=== PATIENT | female | born 1985 | race Caucasian/White ===

== ENCOUNTER 2023-04-28 08:46 | Outpatient (CLI) | payer BC, SELFPAY ==
--- NOTE | 2023-04-28 09:00 | ECG_ITS ---
Measurements Intervals Adams Rate: 71 P: 4 RI: 147 QRS: 13 QRSD: 96 T: 3 QT: 390 QTc: 425 Interpretive Statements SINUS RHYTHM NONSPECIFIC T-WAVE ABNORMALITY ABNORMAL ECG Electronically Signed On 04-28-2023 9:19:47 CDT by Alejandro Olivera M.D.
[2023-04-28 09:32] LABS: Basophils Absolute Auto 0.1 K/mm3 (0.0-0.1); Basophils Percent Auto 0.6 % (0.2-1.2); Eosinophils Absolute Auto 0.1 K/mm3 (0-0.3); Eosinophils Percent Auto 1.2 % (0-4.4); Hematocrit 39.9 % (37.0-47.0); Hemoglobin 12.3 g/dL (12.0-15.0); Immature Granulocyte Absolute 0.05 K/mm3 (0.00-0.031); Immature Granulocyte Percent A 0.4 % (0-0.5); Lymphocytes Absolute Auto 2.97 K/mm3 (0.9-3.2); Lymphocytes Percent Auto 26.5 % (18.3-44.2); Mean Corpuscular HGB Conc 30.8 g/dl (32-36); Mean Corpuscular Hemoglobin 26.1 pg (26-34); Mean Corpuscular Volume 84.7 fl (80-100); Mean Platelet Volume 10.7 fl (7.4-10.4); Monocytes Absolute Auto 0.8 K/mm3 (0.1-0.6); Monocytes Percent Auto 6.9 % (2.6-8.5); Neutrophils Absolute Auto 7.2 K/mm3 (1.3-6.7); Neutrophils Percent Auto 64.4 % (45.5-73.1); Platelet Count Result 358 k/mm3 (150-375); Red Blood Count 4.71 M/mm3 (4.2-5.4); Red Cell Distribution Width 16.7 % (11.5-14.5); White Blood Count 11.2 K/mm3 (4.5-10.0)
[2023-04-28 09:41] LABS: Anion Gap 12 mmol/L (8-16); Blood Urea Nitrogen 11 mg/dL (7-17); Calcium 9.4 mg/dL (8.4-10.2); Carbon Dioxide 24 mmol/L (22-30); Chloride 102 mmol/L (98-107); Estimated Glomerular Filt Rate > 60; Glucose 104 mg/dL (65-110); Sodium 138 mmol/L (137-145)
== END 2023-04-28 08:47 | disposition home or self-care (01) ==
LOC: ANHSURGERY 08:52
PROVIDERS: Anesthesiology; PCP Family Medicine; Visit Provider Obstetrics & Gynecology
DX: Z01.818 Encounter for other preprocedural examination (principal); Z79.899 Other long term (current) drug therapy; I10 Essential (primary) hypertension; D21.9 Benign neoplasm of connective and other soft tissue, unspecified; R94.31 Abnormal electrocardiogram [ECG] [EKG]
CPT/HCPCS: 36415; 80048; 85025; 86850; 86900; 86901; 93005

== ENCOUNTER 2023-04-30 01:50 | Day surgery (SDC) | payer BC, SELFPAY ==
[2023-04-26 10:02] VITALS: BMI 46.2
--- NOTE | 2023-04-26 10:06 | PC.NURSE ---
Report to the Outpatient Waiting Room, entrance under the green pavilion located off [facility], at time 9:30 on date 04/30/23. Planned Procedure Time: 11:30. Time changes happen often and if your time is changed the preop area will call you the afternoon before. - You and your visitor will be asked to self-screen and do not enter if you have any COVID symptoms. - A mask is optional within the hospital at this time. Patients may have clear liquids (water, carbonated beverages, clear teas, apple juice) until 3 hours prior to surgery (8:30) with a maximum of 20 ounces. - No food from midnight until time of surgery Take the following medications with a SIP of water the morning of surgery: NONE DO NOT STOP ANY OF YOUR OTHER PRESCRIPTION MEDICATIONS PRIOR TO SURGERY ?EXCEPT THE FOLLOWING Medications to discontinue per physician: N/A Date to take last dose: N/A Please no make-up, nail burkinan, hairspray, perfume, deodorant, or body powder the day of surgery. No jewelry (including any body piercings) or valuables the day of surgery, leave them at home. Please take a shower or bath the night before, or the morning of, surgery with an antibacterial soap. Wear comfortable, loose fitting clothing. - Jewelry must be removed prior to entering the operating room. Rings and piercings that are not removed may be cut off. - The hospital will not accept responsibility for valuables. - Please leave all valuables, including medications, at home the day of surgery. If you are going home after surgery, a licensed straight truck driver must drive you home. - NO public transportation without another adult if you receive anesthesia. - We recommend that an adult stay with you for 24 hours following discharge. - We also recommend that you do not drive, make important decision, drink alcoholic beverages, or take any drugs that were not prescribed by your health care provider for at least 24 hours after your discharge time. Follow any additional instructions given to you from your surgeon. If you or anyone in your household have experienced Covid symptoms in the past week, please notify your surgeon or the nurse liaison at the phone number below for possible testing. Telephone instructions given to PT - RAJ GABRIEL and asked if any additional questions and then verbalized understanding. Patient advised to call surgeon office or pre surgery nurse liaison [phone] if any additional questions.
--- NOTE | 2023-04-27 12:59 | P.HP_ITS ---
H&P: HPI History of Present Illness Date/Time: 04/27/23 12:59 Chief Complaint: Vaginal bleeding/enlarged uterus/pelvic pain Narrative: This is a 37-year-old female 3 para 3 who is admitted for robotic total vaginal hysterectomy salpingectomy secondary to used history of stage IV endometriosis. She has had pain discomfort and dyspareunia. Her uterus is enlarged she has severe pain. She opts for robotic hysterectomy and bilateral salpingectomy. Risks and benefits reviewed including but not exclusive of , aspiration pneumonia bleeding, transfusion, perforation and injury to bowel, bladder, ureters, or other internal organs with need for laparotomy. She received the ACOG handout entitled hysterectomy as well as the Lv handout she had all questions answered to her satisfaction. She asked to proceed [facility] Social History Social History Smoking status: Never smoker Alcohol intake: never Substance use: never Substance use type: does not use Living arrangements: with family Spiritual care concerns: No Meds Home Medications and Allergies Home Medications Medication Instructions Recorded Confirmed Type estradiol 2 mg tablet 2 mg PO DAILY 04/26/23 04/26/23 History lisdexamfetamine 30 mg capsule 30 mg PO DAILY 04/26/23 04/26/23 History (Vyvanse) lisinopril 10 1 tablet PO DAILY 04/26/23 04/26/23 History mg-hydrochlorothiazide 12.5 mg tablet Allergies Allergy/AdvReac Type Severity Reaction Status Date / Time No Known Allergies Allergy Verified 04/26/23 10:00 Exam Const: General: cooperative, healthy appearing, comfortable and obese Orientation/consciousness: oriented to person, oriented to place and oriented to time HENMT: Head: normal to inspection Resp: Effort & Inspection: normal respiratory effort Cardio: Rate: regular rate Rhythm: regular rhythm Heart sounds: S1 normal heart sound present and S2 normal heart sound present GI: Inspection: normal to inspection and obesity Percussion: Yes normal to percussion Auscultation: normal bowel sounds : External Female Exam: normal external appearance Speculum Exam - Vagina: normal appearance of the vagina Speculum Exam - Cervix: normal appearance of the cervix Bimanual exam- vagina & uterus: enlarged Bimanual Exam- Adnexa, other: normal adnexae Assessment and Plan Assessment and plan (1) Excessive vaginal bleeding: Code(s): N93.9 - Abnormal uterine and vaginal bleeding, unspecified Status: Acute (2) Pelvic pain: Code(s): R10.2 - Pelvic and perineal pain Status: Acute (3) Enlarged uterus: Code(s): N85.2 - Hypertrophy of uterus Status: Acute Plan Robotic total vaginal hysterectomy with bilateral salpingectomies
--- NOTE | 2023-04-29 14:56 | P.PNAN_ITS ---
Anes - Initial Pre Proc Eval Procedure: Operation Date: 04/30/23 11:30 Proposed Procedures p Robotic Assisted Total Vaginal Hysterectomy with Bilateral Salpingectomy - Stanford Kaur MD Date/Time: 04/29/23 14:56 Surgeon: Stanford Kaur MD Pre Op Diagnosis: excessive bleeding, pelvic pain, uterine fibroids Patient Data Age: 37 Gender: F Height: 1.7 m Weight: 133.8 kg Allergies Allergy/AdvReac Type Severity Reaction Status Date / Time No Known Allergies Allergy Verified 04/26/23 10:00 Home Medications Medication Instructions Recorded Confirmed Type estradiol 2 mg tablet 2 mg PO DAILY 04/26/23 04/26/23 History lisdexamfetamine 30 mg capsule 30 mg PO DAILY 04/26/23 04/26/23 History (Vyvanse) lisinopril 10 1 tablet PO DAILY 04/26/23 04/26/23 History mg-hydrochlorothiazide 12.5 mg tablet hydrocodone 5 mg-acetaminophen 325 1 tablet PO Q4H PRN pain #20 tabs 04/30/23 Rx mg tablet Patient hx anesthesia problems: post op nausea/vomiting Family hx anesthesia problems: none Results Review: All pre-operative results and documents have been reviewed as part of the pre- operative evaluation. [facility] Past Medical History Medical History (Updated 04/29/23 @ 14:57 by Lazarus Gordon DO) Endometriosis Fibroid Hypertension PONV (postoperative nausea and vomiting) Surgical History Surgical History (Updated 04/29/23 @ 14:57 by Lazarus Gordon DO) History of Social History Social History Smoking status: Never smoker Alcohol intake: never Substance use: never Substance use type: does not use Living arrangements: with family Spiritual care concerns: No Anes - Eval Final PreProcedure Day of Procedure 04/29/23 14:56 Patient weight: morbidly obese Heart: regular rate and rhythm Lungs: clear to auscultation Airway: Mallampati scale class II Neurological: alert and oriented Last oral intake: >/= 8 hours ASA classification: III Emergent: no Anesthetic plan: proceed Anesthesia type and monitoring: general ETT and standard monitoring Results Review: All pre-operative results and documents have been reviewed as part of the pre- operative evaluation. Informed Consent: The patient's anesthetic plan and its attendant risks and benefits were discussed with the patient/family/POA. Questions were solicited and answers provided to the satisfaction of the patient/family/POA.
[2023-04-30] VITALS (10 sets, daily range): BP systolic 107–139; BP diastolic 55–74; PULSE 81–99; RESP 14–23; TEMP 36.3–37.4; O2SAT 97–100; BMI 44.8
--- NOTE | 2023-04-30 06:40 | WPDHPUPDATE1 ---
History and Physical Update Update Date/Time: 04/30/23 06:40 History and Physical has been reviewed, including an updated exam of the patient. There are NO changes in the patient's condition. Risks, benefits, and alternatives have been discussed and questions answered. Patient agrees to proceed with procedure.
[2023-04-30] MEDS: LACTATED RINGERS 1,000 ML 30 ML IV CONT ×2 (09:55→12:44)
[2023-04-30] MEDS: KETOROLAC 15 MG/ML VIAL (*BKC) IV PUSH (10:03)
[2023-04-30] MEDS: ACETAMINOPHEN 500 MG TABLET 1000 MG PO (10:03)
[2023-04-30] MEDS: SCOPOLAMINE 1.5 MG PATCH TRANSDERM (10:10)
[2023-04-30] MEDS: ceFAZolin 3 GM/D5W 100 ML 100 ML IVPB (11:01)
--- NOTE | 2023-04-30 12:19 | P.OP_ITS ---
Procedure Note - Detailed Date of Procedure 04/30/23 Pre-op Diagnosis excessive bleeding, pelvic pain, uterine fibroids Post-op Diagnosis Same Procedure Performed Robotic total vaginal hysterectomy and bilateral salpingectomy Surgeon Stanford Kaur MD Anesthesia General Indications To 37 old female with excessive heavy bleeding and enlarged uterus Findings Markedly enlarged. Normal-appearing ovaries and tubes. Description of Procedure Patient was prepped draped in the normal sterile fashion placed in the dorsal lithotomy position. Excellent general trach anesthesia speculum placed posterior fornix anterior lip of the cervix grasped with single-tooth tenaculum. Uterus sounded to 10cm. Serial dilatation with fragmented dilators followed by passage of the 8. ZACH and the number 2.5 cold cup. Next the 16 Montserratian catheter was placed in bladder drained clear urine. The weighted speculum and single- tooth removed the gloves were changed. Supraumbilical incision made the Veress needle passed in the abdomen. Abdomen filled with CO2 gas [id number]. The 8mm trocar advanced in the abdomen. Downside visualized no injury seen. Patient placed in Trendelenburg and left and right lateral quadrant incisions made. 8mm trocars advanced under direct visualization assuring injury right upper quadrant incision made the 8mm trocar advanced under direct visualization assuring no injury. The robot was docked. Attention was turned to the cruise counselor. The left round ligament was grasped, burned, cut. Anteriorly a bladder flap was formed by sharply dissecting the peritoneum and reflecting this caudally away from the cervix uterus the opposite round ligament which was clamped, burned, cut. Next the left fallopian tube was dissected away from the ovary and left attached to the uterus at its origin. The right fallopian tube was removed in the same manner leaving it attached to the uterus. The L left utero-ovarian ligament was skeletonized to conserve the left ovary clamped, burned, cut and brought to the level of the previously cut round ligament. In like fashion conserving the right ovary the utero-ovarian ligament was clamped, burned, cut and brought to the level of the previously cut round ligament. The cardinal broad ligaments on the left were then serially skeletonized clamping burning cutting until the uterine vessels could be seen on the left these were individually clamped, burned, cut. On the opposite side on the right, the cardinal and broad ligaments were skeletonized clamping burning cutting and hugging the cervix uterus until the uterine vessels could be seen on the right. These were individually clamped, burned, cut. Excellent blanching of the uterus was noted and a colpotomy incision made. Cervix and uterus removed through the vagina with the tubes. The vagina was then closed with continuous running 0V lock from lateral edge to lateral edge back to the midline. Irrigation undertaken until clear and the vagina was sprinkled with I [place] term. Hemostasis was assured. The robot was undocked. The gas removed from the abdomen. The incisions closed with 4-0 Monocryl glue. Patient went to recovery in satisfactory condition. All sponge, needle, instrument counts were correct. There were no immediate complications noted Estimated Blood Loss 25 Drains No Packing No Pathology Yes Complications No immediate complications Condition Stable Disposition PACU
--- NOTE | 2023-04-30 12:24 | PM.DS ---
DS: Admitting Diagnosis Discharge Date 05/02/23 Admitting Diagnosis Enlarged uterus/pelvic pain/excessive bleeding DS: Discharge Diagnosis Discharge Diagnosis (1) Enlarged uterus: Code(s): N85.2 - Hypertrophy of uterus Status: Acute (2) Pelvic pain: Code(s): R10.2 - Pelvic and perineal pain Status: Acute (3) Excessive vaginal bleeding: Code(s): N93.9 - Abnormal uterine and vaginal bleeding, unspecified Status: Acute DS: Summary Hospital Course Reason for hospitalization: Patient was admitted for robotic total vaginectomy bilateral salpingectomy. Hospital Course: She underwent the above-named procedure on 04/30/2023. Her hospital course remarkable. She remained afebrile. She was up, voiding without difficulty, eating regular diet, ambulating, and general without complaints. Time Spent with Patient Time attestation: Total time spent providing and/or coordinating discharge services: Exam Const: General: cooperative, healthy appearing and comfortable Nutritional Appearance: obese Orientation/consciousness: oriented to person, oriented to place and oriented to time HENMT: Head: normal to inspection Resp: Effort & Inspection: normal respiratory effort Cardio: Rate: regular rate Rhythm: regular rhythm Heart sounds: S1 normal heart sound present and S2 normal heart sound present GI: Inspection: normal to inspection, incision (Wounds are clean dry and intact) and obesity DS: Data Data Completed and Pending Pending studies at discharge: Pending at discharge 04/30/23 11:36 Surgical [PTH] Routine Discharge Plan Discharge Patient Disposition: Home, Self-Care Discharge Instructions: Remove the Scopolamine patch that was placed behind your ear in 72 hours or less. Wash your hands after touching. Patient Instructions: Laparoscopic Hysterectomy (DC) Stand Alone Forms: General Discharge Instructions Follow-up/Referrals: Stanford Dwyer MD [Physician] - 2 Weeks Discharge Medications: New hydrocodone-acetaminophen 5-325 mg tablet 1 tablet PO Q4H PRN (Reason: pain) Qty: 20 0RF Continued lisinopril-hydrochlorothiazide 10-12.5 mg Tablet 1 tablet PO DAILY lisdexamfetamine [Vyvanse] 30 mg capsule 30 mg PO DAILY Discontinued estradiol 2 mg tablet 2 mg PO DAILY
[2023-04-30] MEDS: ONDANSETRON INJ 4 MG/2 ML VIAL IV PUSH (12:44)
[2023-04-30] MEDS: diphenhydrAMINE HCl INJ 50 MG/ML VIAL 12.5 MG IV PUSH (13:00)
[2023-04-30] MEDS: DEXTROSE 5%/LACTATED RINGERS 1,000 ML 125 ML IV CONT (14:32)
[2023-04-30] MEDS: PROMETHAZINE HCL 25 MG/ML AMPUL 12.5 MG IV PUSH (14:52)
--- NOTE | 2023-04-30 18:51 | ADMGEN ---
1405-This patient, Kendra Oliveros, was admitted to OB 2nd Floor Room 279-00. Patient/family oriented to hospital policies and general routines including ID bracelet, bed and alarms, visiting hours, pain management, procedures, bathroom and other care routines, personal items, smoking policy, room service/diet, and visiting hours. Information on how to activate the Rapid Response Team has been discussed. Patient/Family are encouraged to report perceived risks to care and to ask questions if they do not understand what they are told or what they should do.
[2023-04-30] MEDS: IBUPROFEN 600 MG TABLET PO (19:40)
[2023-04-30] MEDS: HYDROcodone/acetaminophen (*CRX) 5-325 MG TABLET 1 TAB PO (19:40)
[2023-05-01] MEDS: HYDROcodone/acetaminophen (*CRX) 5-325 MG TABLET 1 TAB PO ×3 (00:11→10:42)
[2023-05-01 04:00] VITALS: BP 100/58; PULSE 60; RESP 16; TEMP 37; O2SAT 98
[2023-05-01] MEDS: IBUPROFEN 600 MG TABLET PO ×2 (04:48→10:42)
[2023-05-01 05:32] LABS: Basophils Absolute Auto 0.1 K/mm3 (0.0-0.1); Basophils Percent Auto 0.3 % (0.2-1.2); Eosinophils Percent Auto 0.2 % (0-4.4); Hematocrit 34.5 % (37.0-47.0); Hemoglobin 10.7 g/dL (12.0-15.0); Immature Granulocyte Absolute 0.07 K/mm3 (0.00-0.031); Immature Granulocyte Percent A 0.4 % (0-0.5); Lymphocytes Absolute Auto 2.82 K/mm3 (0.9-3.2); Lymphocytes Percent Auto 16.3 % (18.3-44.2); Mean Corpuscular Hemoglobin 26.6 pg (26-34); Mean Corpuscular Volume 85.6 fl (80-100); Mean Platelet Volume 10.8 fl (7.4-10.4); Monocytes Absolute Auto 1.2 K/mm3 (0.1-0.6); Monocytes Percent Auto 6.8 % (2.6-8.5); Neutrophils Absolute Auto 13.1 K/mm3 (1.3-6.7); Platelet Count Result 339 k/mm3 (150-375); Red Blood Count 4.03 M/mm3 (4.2-5.4); Red Cell Distribution Width 16.7 % (11.5-14.5); White Blood Count 17.3 K/mm3 (4.5-10.0)
[2023-05-01 08:00] VITALS: BP 87/47; PULSE 53; RESP 18; TEMP 36.9
--- NOTE | 2023-05-01 10:24 | PM.GYNPNOP ---
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 P: Home to f/u 2 weeks. (2) Pelvic pain: Code(s): R10.2 - Pelvic and perineal pain Status: Acute (3) Excessive vaginal bleeding: Code(s): N93.9 - Abnormal uterine and vaginal bleeding, unspecified Status: Acute Postoperative Procedures: Procedures Operation Date: 04/30/23 11:30 Actual Procedure Side Surgeon p Robotic Assisted Total Vaginal Hysterectomy with Bilateral Salpingectomy Bilateral Stanford Kaur MD Postoperative day: 1 Time Spent With Patient Time: Total time spent is greater than 50% in coordination of care (as documented) at patient's floor/unit and/or counseling patient: Time with patient: less than 15 minutes DUMB WAITER OPERATOR- PN:Subj Post-Op Subjective Date/time seen: 05/01/23 10:24 Interval history: Pain OK. Tolerating diet. Voiding. Would like to go home. Exam Narrative: AVSS I/O OK ABD soft, nontender. Incisions c/d/i. EXT nontender DUMB WAITER OPERATOR - PN: Obj Data Vital Signs Vital Signs: Vital Signs - 24 hr 04/30/23 12:31 04/30/23 12:45 04/30/23 13:00 Temperature 36.3 C L Pulse Rate 99 88 88 Respiratory Rate 23 H 22 H 20 Blood Pressure 112/55 L 127/63 135/66 Pulse Oximetry 100 100 100 Oxygen Delivery Simple Face Mask Simple Face Mask Room Air Oxygen Flow Rate 8 8 04/30/23 13:15 04/30/23 13:30 04/30/23 13:45 Temperature Pulse Rate 82 83 84 Respiratory Rate 20 20 20 Blood Pressure 134/66 136/67 136/74 Pulse Oximetry 99 99 99 Oxygen Delivery Room Air Room Air Room Air Oxygen Flow Rate 04/30/23 13:55 04/30/23 14:30 04/30/23 20:00 Temperature 37.3 C 37.4 C Pulse Rate 86 86 85 Respiratory Rate 18 18 16 Blood Pressure 107/59 L 131/70 Pulse Oximetry 98 98 97 Oxygen Delivery Room Air Oxygen Flow Rate 05/01/23 04:00 05/01/23 08:00 Temperature 37.0 C 36.9 C Pulse Rate 60 53 L Respiratory Rate 16 18 Blood Pressure 100/58 L 87/47 L Pulse Oximetry 98 Oxygen Delivery Oxygen Flow Rate Intake/Output Intake/Output: Intake & Output 04/28/23 04/29/23 04/30/23 05/01/23 23:59 23:59 23:59 23:59 Intake Total 1561 Output Total 550 300 Balance 1011 -300 Meds/Results Medications: Active Medications Generic Name Dose Route Start Last Admin Trade Name Freq PRN Reason Stop Dose Admin Hydrocodone Bitart/Acetaminophen 1 tab 04/30/23 13:56 05/01/23 04:48 Hydrocodone/Acetaminophen (*Crx) 5-325 Mg Tablet PO 1 tab Q3H PRN Administration Pain Rated 5 or Less Hydrocodone Bitart/Acetaminophen 1 tab 04/30/23 13:56 Hydrocodone/Acetaminophen (*Crx) 10-325 Mg Tablet PO Q3H PRN Pain Rated 6 or Greater Docusate Sodium 100 mg 04/30/23 17:00 05/01/23 07:43 Docusate Sodium 100 Mg Capsule PO Not Given BID [facility] Enoxaparin Sodium 40 mg 05/01/23 09:00 Enoxaparin 40 Mg/0.4 Ml Syringe SUB-Q DAILY [facility] Ibuprofen 600 mg 04/30/23 13:56 05/01/23 04:48 Ibuprofen 600 Mg Tablet PO 600 mg Q6H PRN Administration Cramping Ketorolac Tromethamine 30 mg 04/30/23 13:56 Ketorolac 30 Mg/Ml Vial (*Bkc) IV PUSH 05/05/23 13:55 Q6H PRN Pain Rated 4-6 Naloxone HCl 0.1 mg 04/30/23 13:56 Naloxone Hcl 0.4 Mg/Ml Vial IV PUSH Q2M PRN Respiratory rate less than 10 Ondansetron HCl 4 mg 04/30/23 13:56 Ondansetron Inj 4 Mg/2 Ml Vial IV PUSH Q6H PRN Nausea And Vomiting Promethazine HCl 12.5 mg 04/30/23 14:24 04/30/23 14:52 Promethazine Hcl 25 Mg/Ml Ampul IV PUSH 12.5 mg Q6H PRN Administration Nausea And Vomiting Simethicone 80 mg 04/30/23 13:56 Simethicone 80 Mg Tab.Chew PO Q2H PRN Gas Labs 05/01/23 04:53 Labs: Laboratory Results - last 24 hr 05/01/23 04:53 WBC 17.3 H RBC 4.03 L Hgb 10.7 L Hct 34.5
--- NOTE | 2023-05-01 10:26 | PM.DS ---
DS: Admitting Diagnosis Discharge Date 05/01/23 Admitting Diagnosis Enlarged uterus Pelvic pain Excessive vaginal bleeding DS: Discharge Diagnosis Discharge Diagnosis (1) Enlarged uterus: Code(s): N85.2 - Hypertrophy of uterus Status: Acute (2) Pelvic pain: Code(s): R10.2 - Pelvic and perineal pain Status: Acute (3) Excessive vaginal bleeding: Code(s): N93.9 - Abnormal uterine and vaginal bleeding, unspecified Status: Acute DS: Summary Hospital Course Hospital Course: She was admitted for scheduled surgery. Please see op note. She did well postop and was able to go home on POD1. Time Spent with Patient Time attestation: Total time spent providing and/or coordinating discharge services: DS: Data Data Completed and Pending Pending studies at discharge: Pending at discharge 04/30/23 11:36 Surgical [PTH] Routine Labs on day of discharge: Labs from last 24 hours 05/01/23 04:53 WBC 17.3 H RBC 4.03 L Hgb 10.7 L Hct 34.5 L MCV 85.6 MCH 26.6 MCHC 31.0 L RDW 16.7 H Plt Count 339 MPV 10.8 H Immature Gran % (Auto) 0.4 Neut % (Auto) 76.0 H Lymph % (Auto) 16.3 L [place] % (Auto) 6.8 Eos % (Auto) 0.2 Baso % (Auto) 0.3 Lymph # (Auto) 2.82 [place] # (Auto) 1.2 H Eos # (Auto) 0.0 Baso # (Auto) 0.1 Abs Immat Gran (auto) 0.07 H Absolute Neuts (auto) 13.1 H Absolute Nucleated RBC 0.0 Nucleated RBC % 0.0 Discharge Plan Discharge Patient Disposition: Home, Self-Care Discharge Instructions: Remove the Scopolamine patch that was placed behind your ear in 72 hours or less. Wash your hands after touching. Stand Alone Forms: General Discharge Instructions Follow-up/Referrals: Stanford Dwyer MD [Physician] - 2 Weeks Discharge Medications: New hydrocodone-acetaminophen 5-325 mg tablet 1 tablet PO Q4H PRN (Reason: pain) Qty: 20 0RF Continued lisinopril-hydrochlorothiazide 10-12.5 mg Tablet 1 tablet PO DAILY lisdexamfetamine [Vyvanse] 30 mg capsule 30 mg PO DAILY Discontinued estradiol 2 mg tablet 2 mg PO DAILY
[2023-05-01] MEDS: DOCUSATE SODIUM 100 MG CAPSULE PO (10:43)
[2023-05-01] MEDS: ENOXAPARIN 40 MG/0.4 ML SYRINGE SUB-Q (10:43)
== END 2023-05-01 11:53 | disposition home or self-care (01) ==
LOC: ANHSURGERY 10:11 → ANHOB2 14:07
PROVIDERS: PCP Family Medicine; Visit Provider Obstetrics & Gynecology
PROC: (CPT 58552; principal; 2023-04-30 11:30)
DX: N93.9 Abnormal uterine and vaginal bleeding, unspecified (principal); D26.9 Other benign neoplasm of uterus, unspecified; R10.2 Pelvic and perineal pain; N72 Inflammatory disease of cervix uteri; N83.8 Other noninflammatory disorders of ovary, fallopian tube and broad ligament; I10 Essential (primary) hypertension; E66.01 Morbid (severe) obesity due to excess calories; Z68.41 Body mass index [BMI] 40.0-44.9, adult
CPT/HCPCS: 58552; S2900; 36415; 80048; 85025; 86850; 86900; 86901; 88307; 93005; 99199; A9270; J0690; J1100; J1200; J1650; J1885; J2250; J2405; J2550; J2704; J3010; J7030; J7120; J7121